=== PATIENT | male | born 1935 | race Caucasian/White ===

== ENCOUNTER 2018-01-12 20:14 | Inpatient (IN) | payer OTHER ==
--- NOTE | 2018-01-12 20:52 | EDPHY ---
H & P Time Seen by Provider: 01/12/18 20:35 HPI/ROS: CHIEF COMPLAINT: Abdominal pain HISTORY OF PRESENT ILLNESS: Patient is a history of pancreatitis possibly due to gallstones but felt relative well today and a hike and elder outer [place]. Around 6:00 p.m. He was with his girlfriend trying to have dinner and just had some sweet potatoes and developed abdominal pain and bloating. He comes in with generalized abdominal pain associated with bloating, no nausea or vomiting or diarrhea. Worse with trying to eat. Not sure feels like his previous pancreatitis. Symptoms moderate at this time. REVIEW OF SYSTEMS: Eye: no change in vision ENT: no sore throat Cardiac: no chest pain or syncope Pulmonary: no cough or SOB Abdomen: HPI Musculoskeletal: no back pain Skin: no rash Neuro: no headache Constitutional: no fever : no urinary symptoms A comprehensive 10 point review of systems is otherwise negative aside from elements mentioned in the history of present illness. PAST MEDICAL HISTORY: Pancreatitis, cholecystectomy, kidney tumor, bladder cancer, hypertension, pulmonary embolism Social history: Here with his girlfriend, no alcohol. General Appearance: Alert and conversant, cooperative. Eyes: No scleral icterus. ENT, Mouth: Normal mucous membranes. Respiratory: Normal respiratory effort, breath sounds equal, lungs are clear to auscultation. Cardiovascular: Regular rate and rhythm. Gastrointestinal: Patient has abdominal distention and mild diffuse tenderness , bowel sounds are present, no peritoneal signs. Neurological: Alert, face symmetric, normal motor and sensory in extremities. Skin: Warm and dry, no rashes. Musculoskeletal: No peripheral edema. Psychiatric: Not agitated. Emergency Department course/MDM: Suspicion moderately high for bowel obstruction given relatively rapid onset of abdominal pain and bloating. Plan for LFT lipase and i-STAT with CT abdomen and pelvis to evaluate for SBO. 2111: Creatinine 1.3, CT ordered without IV contrast. 2140: Acute pancreatitis on CT per Dr. Rodriguez. Plan for admission with IV fluids and NPO. Results discussed with patient and his girlfriend, plan to admit. Declined pain medication. Smoking Status: Never smoked Constitutional: Initial Vital Signs Temperature (C) 36.3 C 01/12/18 20:29 Heart Rate 79 01/12/18 20:29 Respiratory Rate 16 01/12/18 20:29 Blood Pressure 183/110 H 01/12/18 20:29 O2 Sat (%) 95 01/12/18 20:29 O2 Delivery Mode Room Air Allergies/Adverse Reactions: HORSES Allergy (Mild, Uncoded 07/13/13 14:00) IRRITATED EYES Home Medications: Medication Instructions Recorded Cholecalciferol Vit D3 [Vitamin D] 1,000 units PO DAILY 09/17/15 Hydrochlorothiazide [Microzide] 12.5 mg PO DAILY 09/17/15 Omeprazole [Prilosec] 40 mg PO DAILY 09/17/15 Rosuvastatin Calcium [Crestor 10mg 10 mg PO DAILY@1800 09/17/15 (RX)] Warfarin Sodium [Coumadin] 1.25 mg PO TH 09/17/15 Warfarin Sodium [Coumadin 2.5MG 2.5 mg PO SUMOTUWEFRSA@16 01/12/18 (*)] Medical Decision Making - Diagnostics Imaging Results: Imaging Impressions Abdomen/Pelvis CT 01/12/18 21:12 Impression: Acute uncomplicated pancreatitis. Results called and discussed with SHALA BARNES, at 01/12/2018 21:40 General information for patients regarding this examination can be found at [email or web address]. If you have questions or comments about this report, please contact me at (hospital) or [phone] (cell). Imaging: Discussed imaging studies w/ call manager Radiologist, I viewed and interpreted images myself Differential Diagnosis: Differential considered including but not limited to bowel obstruction, pancreatitis, hepatitis, gastroenteritis, intestinal perforation Consult/Admit Bed Type: [place] [id number] - Data Points Laboratory Results: Laboratory Results 01/12/18 20:50 01/12/18 20:50 01/12/18 01/12/18 01/12/18 21:01 20:50 20:50 WBC RBC Hgb POC Hgb 13.9 gm/dL gm/dL (13.7-17.5) Hct POC Hct 41 % % (40-51) MCV MCH MCHC RDW Plt Count MPV Neut % (Auto) Lymph % (Auto) Teller % (Auto) Eos % (Auto) Baso % (Auto) Nucleat RBC Rel Count Absolute Neuts (auto) Absolute Lymphs (auto) Absolute Monos (auto) Absolute Eos (auto) Absolute Basos (auto) Absolute Nucleated RBC Immature Gran % Immature Gran # PT 24.0 SEC H SEC (12.0-15.0) INR 2.15 H (0.83-1.16) POC Sodium 140 mEq/L mEq/L (135-145) Sodium 137 mEq/L mEq/L (135-145) POC Potassium 3.6 mEq/L mEq/L (3.3-5.0) Potassium 3.7 mEq/L mEq/L (3.5-5.2) POC Chloride 101 mEq/L mEq/L (97-110) Chloride 99 mEq/L mEq/L (97-110) Carbon Dioxide 24 mEq/l mEq/l (22-31) Anion Gap 14 mEq/L mEq/L (8-16) POC BUN 34 mg/dL H mg/dL (7-23) BUN 34 mg/dL H mg/dL (7-23) Creatinine 1.3 mg/dL mg/dL (0.7-1.3) POC Creatinine 1.3 mg/dL mg/dL (0.7-1.3) Estimated GFR 53 Glucose 104 mg/dL H mg/dL (70-100) POC Glucose 102 mg/dL H mg/dL (70-100) Calcium 9.6 mg/dL mg/dL (8.5-10.4) Total Bilirubin 0.3 mg/dL mg/dL (0.1-1.4) Conjugated Bilirubin 0.2 mg/dL mg/dL (0.0-0.5) Unconjugated Bilirubin 0.1 mg/dL mg/dL (0.0-1.1) AST 29 IU/L IU/L (17-59) ALT 41 IU/L IU/L (21-72) Alkaline Phosphatase 66 IU/L IU/L (38-126) Total Protein 7.4 g/dL g/dL (6.3-8.2) Albumin 4.3 g/dL g/dL (3.5-5.0) Lipase > 36637 IU/L H IU/L (23-300) Urine Color Urine Appearance Urine pH Ur Specific [place] Urine Protein Urine Ketones Urine Blood Urine Nitrate Urine Bilirubin Urine Urobilinogen Ur Leukocyte Esterase Urine RBC Urine WBC Ur Epithelial Cells Urine Glucose 01/12/18 01/12/18 20:50 20:40 WBC 8.09 10^3/uL 10^3/uL (3.80-9.50) RBC 5.28 10^6/uL 10^6/uL (4.40-6.38) Hgb 14.0 g/dL g/dL (13.7-17.5) POC Hgb Hct 43.7 % % (40.0-51.0) POC Hct MCV 82.8 fL fL (81.5-99.8) MCH 26.5 pg L pg (27.9-34.1) MCHC 32.0 g/dL L g/dL (32.4-36.7) RDW 15.0 % % (11.5-15.2) Plt Count 257 10^3/uL 10^3/uL (150-400) MPV 9.3 fL fL (8.7-11.7) Neut % (Auto) 76.2 % H % (39.3-74.2) Lymph % (Auto) 11.4 % L % (15.0-45.0) Teller % (Auto) 7.3 % % (4.5-13.0) Eos % (Auto) 4.0 % % (0.6-7.6) Baso % (Auto) 0.9 % % (0.3-1.7) Nucleat RBC Rel Count 0.0 % % (0.0-0.2) Absolute Neuts (auto) 6.17 10^3/uL 10^3/uL (1.70-6.50) Absolute Lymphs (auto) 0.92 10^3/uL L 10^3/uL (1.00-3.00) Absolute Monos (auto) 0.59 10^3/uL 10^3/uL (0.30-0.80) Absolute Eos (auto) 0.32 10^3/uL 10^3/uL (0.03-0.40) Absolute Basos (auto) 0.07 10^3/uL 10^3/uL (0.02-0.10) Absolute Nucleated RBC 0.00 10^3/uL 10^3/uL (0-0.01) Immature Gran % 0.2 % % (0.0-1.1) Immature Gran # 0.02 10^3/uL 10^3/uL (0.00-0.10) PT INR POC Sodium Sodium POC Potassium Potassium POC Chloride Chloride Carbon Dioxide Anion Gap POC BUN BUN Creatinine POC Creatinine Estimated GFR Glucose POC Glucose Calcium Total Bilirubin Conjugated Bilirubin Unconjugated Bilirubin AST ALT Alkaline Phosphatase Total Protein Albumin Lipase Urine Color PALE YELLOW Urine Appearance CLEAR Urine pH 5.0 (5.0-7.5) Ur Specific [place] 1.008 (1.002-1.030) Urine Protein 1+ H (NEGATIVE) Urine Ketones NEGATIVE (NEGATIVE) Urine Blood NEGATIVE (NEGATIVE) Urine Nitrate NEGATIVE (NEGATIVE) Urine Bilirubin NEGATIVE (NEGATIVE) Urine Urobilinogen NEGATIVE EU EU (0.2-1.0) Ur Leukocyte Esterase NEGATIVE (NEGATIVE) Urine RBC 1-3 /hpf /hpf (0-3) Urine WBC 1-3 /hpf /hpf (0-3) Ur Epithelial Cells NONE SEEN /lpf /lpf (NONE-1+) Urine Glucose NEGATIVE (NEGATIVE) Medications Given: Discontinued Medications Sodium Chloride (Ns) 1,000 mls @ 0 mls/hr IV EDNOW ONE; Wide Open PRN Reason: Protocol Stop: 01/12/18 21:47 Last Admin: 01/12/18 21:48 Dose: 1,000 mls Sodium Chloride (Ns) 1,000 mls @ 0 mls/hr IV EDNOW ONE; Wide Open PRN Reason: Protocol Stop: 01/12/18 22:06 Last Admin: 01/12/18 22:20 Dose: 1,000 mls Point of Care Test Results: 01/12/18 21:01 POC Sodium 140 POC Potassium 3.6 POC Chloride 101 POC BUN 34 H POC Creatinine 1.3 POC Glucose 102 H Departure - Departure Disposition: [facility] Inpatient Acute Clinical Impression: Acute pancreatitis Qualifiers: Pancreatitis type: unspecified pancreatitis type Acute pancreatitis complication: unspecified Qualified Code(s): K85.90 - Acute pancreatitis without necrosis or infection, unspecified Condition: Good
[2018-01-12 21:10] LABS: PLATELET COUNT 257 10^3/uL (150-400)
[2018-01-12 21:15] LABS: INR 2.15 (0.83-1.16)
[2018-01-12] MEDS ORDERED: NS 1,000 ML IV ONE ×2 (21:46→22:05)
[2018-01-12] MEDS ORDERED: ONDANSETRON 4 MG/2 ML VIAL IVP PRN (22:17)
[2018-01-12] MEDS ORDERED: ACETAMINOPHEN 325 MG TAB PO PRN (22:17)
[2018-01-12] MEDS: HYDROmorphONE/DILAUDID 1 MG/ML INJ IVP PRN (23:23)
[2018-01-12] MEDS: NS 1,000 ML IV SCH (23:26)
--- NOTE | 2018-01-12 23:44 | PDGENHP ---
History and Physical - Chief Complaint abdominal pain - History of Present Illness Source-patient provides history appears reliable. Case discussed with ED provider in EMR was reviewed. HPI - this is a very pleasant 82-year-old gentleman with past medical history significant for recurrent pancreatitis on GERD hyperlipidemia history of benign kidney tumor status post resection history of bladder cancer in remission, hypertension, PE on Coumadin since 2007 who presents emergency department today on with complaints of 1 day history of abdominal pain and distension. Patient is quite active any when on the 6 mi hike home with some friends earlier in the day time. They returned back for lunch approximately of 4:35 p.m. Patient began to develop increasing upper abdominal pain with distention. He did had poor appetite on and chills but no fevers. Patient subsequently tried to eat dinner he found that he had very little appetite and took just a few bites and subsequently developed increasing abdominal pain and distension. Given his past experience with would be almaraz to present to the emergency department for further evaluation. Patient states that he has had a bowel movement this morning he denies any melena hematochezia or diarrhea. Patient has had just some nausea status post narcotic in the emergency department for pain which has since resolved. Patient with a history of 2 previous episodes of pancreatitis. The 1st episode was felt to be due to gallstones and so he subsequently underwent cholecystectomy after pancreatitis has improved. He again had another episode while in [place] and there was concerns that perhaps his home statin Lipitor was contributing to his symptoms and so this was discontinued and subsequently substituted with Crestor. History Information - Allergies/Home Medication List Allergies/Adverse Reactions: HORSES Allergy (Mild, Uncoded 07/13/13 14:00) IRRITATED EYES Home Medications: Cholecalciferol Vit D3 [Vitamin D] 1,000 units PO DAILY 09/17/15 [Last Taken ] Hydrochlorothiazide [Microzide] 12.5 mg PO DAILY 09/17/15 [Last Taken 01/12/18] Omeprazole [Prilosec] 40 mg PO DAILY 09/17/15 [Last Taken 01/12/18] Rosuvastatin Calcium [Crestor 10mg (RX)] 10 mg PO DAILY@1800 09/17/15 [Last Taken 01/12/18] Warfarin Sodium [Coumadin] 1.25 mg PO TH 09/17/15 [Last Taken 01/12/18] Warfarin Sodium [Coumadin 2.5MG (*)] 2.5 mg PO PRICILLATUWEFMARYANA@16 01/12/18 [Last Taken 01/11/18] I have personally reviewed and updated: family history, medical history, social history, surgical history - Past Medical History Additional medical history: GERD, HLD, HTN, PE on Coumadin since 2007, recurrent pancreatitis status post cholecystectomy, history of benign kidney tumor, history of bladder cancer in remission. - Surgical History Additional surgical history: Bilateral cataract extraction with lens placement, tonsillectomy adenoidectomy, hernia repair, cholecystectomy, cystectomy with BCG treatment, TURP - Family History Additional family history: Father with CAD in his 40s - Social History Smoking Status: Never smoked Alcohol Use: Occasionally Drug Use: None Additional social history: Patient is quite active he goes outdoors frequently. He has good support from a girlfriend and his sons. Cor status full. Patient 's son's Jose Francisco and Sha Dariel are MD POA if needed Review of Systems Review of Systems: ROS: 10pt was reviewed & negative except for what was stated in HPI & below Constitutional: Reports: chills (X1 resolved) EENMT: Reports: other (Wears reader is). Denies: blurred vision Cardiac: Denies: chest pain, edema, palpitations Respiratory: Denies: cough, shortness of breath Gastrointestinal: Reports: abdominal pain (Epigastric), abdominal distention, nausea (X1 after narcotics). Denies: vomitting, diarrhea Physical Exam Physical Exam: Selected Entries 01/12/18 20:29 Blood Pressure Automatic Method Heart Rate 79 Respiratory 16 Rate O2 Sat (%) 95 Temperature (C) 36.3 C Blood Pressure 183/110 H Mean Arterial 134 H Pressure (MAP) O2 Delivery Room Air Mode Temperature Oral Source Temp Pulse Resp BP Pulse Ox 36.3 C 75 20 142/89 H 95 01/12/18 20:29 01/12/18 22:30 01/12/18 22:30 01/12/18 22:30 01/12/18 22:30 Constitutional: no apparent distress, appears nourished, other (NAD. Pleasant elderly gentleman appears slightly younger than stated age. Lays quietly in bed ), No obese Eyes: PERRL, anicteric sclera Ears, Nose, Mouth, Throat: no oral mucosal ulcers, dry mucous membranes, No poor dentition Cardiovascular: regular rate and rhythym, no murmur, rub, or gallop, pulses symmetric bilaterally, No systolic murmur Peripheral Pulses: 1+: dorsalis-pedis (R), dorsalis-pedis (L) Respiratory: no respiratory distress, no rales or rhonchi, clear to auscultation , No reduced air movement Gastrointestinal: tenderness (Abdomen is soft. Patient with tenderness in the epigastric region and withdraws from exam.), distension, No normoactive bowel sounds (Hypoactive bowel sounds), No soft, non-tender abdomen, No lugo's sign , No guarding, No rebound Genitourinary: no bladder tenderness, No urrutia in urethra Skin: warm, normal color, no rashes or abrasions, No mottled Musculoskeletal: full muscle strength, no muscle tenderness, No joint tenderness Neurologic: AAOx3, sensation intact bilaterally, CN II-XII Intact, No facial droop Psychiatric: not anxious, not encephalopathic, thought process linear Lymph, Heme, Immunologic: No ecchymoses, No petechiae Lab Data & Imaging Review 01/13/18 03:20 01/13/18 03:20 WBC 8.09 10^3/uL (3.80-9.50) 01/12/18 20:50 RBC 5.28 10^6/uL (4.40-6.38) 01/12/18 20:50 Hgb 14.0 g/dL (13.7-17.5) 01/12/18 20:50 POC Hgb 13.9 gm/dL (13.7-17.5) 01/12/18 21:01 Hct 43.7 % (40.0-51.0) 01/12/18 20:50 POC Hct 41 % (40-51) 01/12/18 21:01 MCV 82.8 fL (81.5-99.8) 01/12/18 20:50 MCH 26.5 pg (27.9-34.1) L 01/12/18 20:50 MCHC 32.0 g/dL (32.4-36.7) L 01/12/18 20:50 RDW 15.0 % (11.5-15.2) 01/12/18 20:50 Plt Count 257 10^3/uL (150-400) 01/12/18 20:50 MPV 9.3 fL (8.7-11.7) 01/12/18 20:50 Neut % (Auto) 76.2 % (39.3-74.2) H 01/12/18 20:50 Lymph % (Auto) 11.4 % (15.0-45.0) L 01/12/18 20:50 [place] % (Auto) 7.3 % (4.5-13.0) 01/12/18 20:50 Eos % (Auto) 4.0 % (0.6-7.6) 01/12/18 20:50 Baso % (Auto) 0.9 % (0.3-1.7) 01/12/18 20:50 Nucleat RBC Rel Count 0.0 % (0.0-0.2) 01/12/18 20:50 Absolute Neuts (auto) 6.17 10^3/uL (1.70-6.50) 01/12/18 20:50 Absolute Lymphs (auto) 0.92 10^3/uL (1.00-3.00) L 01/12/18 20:50 Absolute Monos (auto) 0.59 10^3/uL (0.30-0.80) 01/12/18 20:50 Absolute Eos (auto) 0.32 10^3/uL (0.03-0.40) 01/12/18 20:50 Absolute Basos (auto) 0.07 10^3/uL (0.02-0.10) 01/12/18 20:50 Absolute Nucleated RBC 0.00 10^3/uL (0-0.01) 01/12/18 20:50 Immature Gran % 0.2 % (0.0-1.1) 01/12/18 20:50 Immature Gran # 0.02 10^3/uL (0.00-0.10) 01/12/18 20:50 PT 24.0 SEC (12.0-15.0) H 01/12/18 20:50 INR 2.15 (0.83-1.16) H 01/12/18 20:50 POC Sodium 140 mEq/L (135-145) 01/12/18 21:01 Sodium 137 mEq/L (135-145) 01/12/18 20:50 POC Potassium 3.6 mEq/L (3.3-5.0) 01/12/18 21:01 Potassium 3.7 mEq/L (3.5-5.2) 01/12/18 20:50 POC Chloride 101 mEq/L (97-110) 01/12/18 21:01 Chloride 99 mEq/L (97-110) 01/12/18 20:50 Carbon Dioxide 24 mEq/l (22-31) 01/12/18 20:50 Anion Gap 14 mEq/L (8-16) 01/12/18 20:50 POC BUN 34 mg/dL (7-23) H 01/12/18 21:01 BUN 34 mg/dL (7-23) H 01/12/18 20:50 Creatinine 1.3 mg/dL (0.7-1.3) 01/12/18 20:50 POC Creatinine 1.3 mg/dL (0.7-1.3) 01/12/18 21:01 Estimated GFR 53 01/12/18 20:50 Glucose 104 mg/dL (70-100) H 01/12/18 20:50 POC Glucose 102 mg/dL (70-100) H 01/12/18 21:01 Calcium 9.6 mg/dL (8.5-10.4) 01/12/18 20:50 Total Bilirubin 0.3 mg/dL (0.1-1.4) 01/12/18 20:50 Conjugated Bilirubin 0.2 mg/dL (0.0-0.5) 01/12/18 20:50 Unconjugated Bilirubin 0.1 mg/dL (0.0-1.1) 01/12/18 20:50 AST 29 IU/L (17-59) 01/12/18 20:50 ALT 41 IU/L (21-72) 01/12/18 20:50 Alkaline Phosphatase 66 IU/L (38-126) 01/12/18 20:50 Total Protein 7.4 g/dL (6.3-8.2) 01/12/18 20:50 Albumin 4.3 g/dL (3.5-5.0) 01/12/18 20:50 Lipase > 90014 IU/L (23-300) H 01/12/18 20:50 Urine Color PALE YELLOW 01/12/18 20:40 Urine Appearance CLEAR 01/12/18 20:40 Urine pH 5.0 (5.0-7.5) 01/12/18 20:40 Ur Specific [place] 1.008 (1.002-1.030) 01/12/18 20:40 Urine Protein 1+ (NEGATIVE) H 01/12/18 20:40 Urine Ketones NEGATIVE (NEGATIVE) 01/12/18 20:40 Urine Blood NEGATIVE (NEGATIVE) 01/12/18 20:40 Urine Nitrate NEGATIVE (NEGATIVE) 01/12/18 20:40 Urine Bilirubin NEGATIVE (NEGATIVE) 01/12/18 20:40 Urine Urobilinogen NEGATIVE EU (0.2-1.0) 01/12/18 20:40 Ur Leukocyte Esterase NEGATIVE (NEGATIVE) 01/12/18 20:40 Urine RBC 1-3 /hpf (0-3) 01/12/18 20:40 Urine WBC 1-3 /hpf (0-3) 01/12/18 20:40 Ur Epithelial Cells NONE SEEN /lpf (NONE-1+) 01/12/18 20:40 Urine Glucose NEGATIVE (NEGATIVE) 01/12/18 20:40 Imaging Review: CT Abdomen and Pelvis Without Contrast ([facility] Protocol) History: Abdominal distention, possible small bowel obstruction, high creatinine, abdominal pain. Prior history of cholecystectomy, pancreatitis and urinary bladder cancer. Technique: Ultrathin ultrafast [address] through the abdomen and pelvis without contrast. Dose reduction techniques were utilized. Comparison: November 01, 2016 Findings: There is new inflammation and enlargement of the pancreatic head and neck consistent with acute pancreatitis. There is no pseudocyst formation. There are chronic calcifications in the pancreatic head. There is adjacent inflammation of the duodenal sweep. The stomach is not distended. There is no small bowel obstruction, ascites or free air. Right upper quadrant surgical clips are consistent with prior cholecystectomy. There is no biliary obstruction or distal pancreatic ductal dilatation. There is chronic prostatomegaly with a TURP defect. The prostate measures 6.6 x 6.2 cm.There is sigmoid diverticulosis without evidence of diverticulitis or colon obstruction. 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 There is mild dilatation of the infrarenal abdominal aorta which measures up to 2.8 cm in diameter, unchanged since 2016. Impression: Acute uncomplicated pancreatitis. Results called and discussed with SHALA BARNES, at 01/12/2018 21:40 Visualized and Interpreted imaging results: Yes Assessment & Plan Assessment: Acute pancreatitis (Acute) - etiology is unknown at this time. Patient is status post a cholecystectomy. Will hold his home medications orally including his statin for now. Will check a triglyceride. Patient without any evidence of CBD dilation. Continue with bowel rest, IV fluid hydration, pain management and await improvement in patient's symptoms. Discussed with the patient plan for bowel rest followed by slow reintroduction to oral intake. Repeat lipase amylase morning. Epigastric abdominal pain - Dilaudid available p.r.n. for pain incidental findings on CT - renal cysts - sigmoid diverticulosis without diverticulitis - BPH - small sliding hiatal hernia Chronic medical problems - benign essential HTN with elevated blood pressures likely related to pain. Hydralazine will be made available p.r.n. While patient is NPO. - GERD - IV Protonix per formulary till diet is advanced. - HLD - holding statin while NPO. - PE on chronic anticoagulation with Coumadin - patient's INR is therapeutic at this time. He will be NPO for a day or 2 but will monitor PT INR. As it is quite remote if patient recovers quickly and oral intake is resumed patient may not require any form of bridging. FEN - IV fluids. Electrolyte monitoring and replacement if needed. Patient remain NPO until abdominal symptoms improved. PPX-SCDs. Patient currently INR is therapeutic will continue to monitor. May require Lovenox bridging high given patient PE was sometime ago if he recovers quickly enough an oral intake is resumed he may not required. COR - full code. Patient's son's Jose Francisco and Sha Vieira are POClau Dispo - patient will be admitted to inpatient status for his acute pancreatitis on the medical floor as a PCU overflow. Patient's lipase is significantly elevated will plan to monitor and advance diet very slowly.
[2018-01-13] MEDS ORDERED: hydrALAZINE 20 MG/ML VIAL IVP PRN (00:46)
[2018-01-13] MEDS: HYDROmorphONE/DILAUDID 1 MG/ML INJ IVP PRN (03:48)
[2018-01-13 04:16] LABS: PLATELET COUNT 200 10^3/uL (150-400)
[2018-01-13 04:20] LABS: INR 2.41 (0.83-1.16); PROTIME(PATIENT) 26.2 SEC (12.0-15.0)
[2018-01-13] MEDS ORDERED: PANTOPRAZOLE SODIUM 40 MG VIAL IVP SCH (09:00)
--- NOTE | 2018-01-13 09:03 | ASMTCMCOM ---
CM Note CM Note Notes: Patient admitted with abdominal pain/distention; CT of abdomen shows acute pancreatitis. He will be treated supportively with IV fluids, pain meds, and bowel rest. Oral meds to be held and diet to be advanced very slowly. Patient is normally very active and independent in all ADLs, therefore no therapies have been ordered. His sons Sha and Jose Francisco (one local) are his MDPOA. He has a supportive girlfriend as well. I don't anticipate any discharge needs, but CM available if any arise. Current CM Discharge plan: home independent Date Signed: 01/13/2018 09:02 AM Electronically Signed By:Missy Higgins RN
[2018-01-13] MEDS: NS 1,000 ML IV SCH ×2 (09:45→17:57)
--- NOTE | 2018-01-13 11:48 | PDMN ---
Medical Necessity Medical necessity: Patient meets inpatient criteria per physician note and [facility] M -250 Pancreatitis (presents w/upper abd pain and chills; acute pancreatitis per CT; lipase > ; lipase 2060; history of recurrent pancreatitis; anticipated LOS > 2 midnights for ongoing IV hydration, IV pain relief, bowel rest.)
--- NOTE | 2018-01-13 12:20 | HOSPPROG ---
Hospitalist Progress Note Assessment/Plan: 82-year-old male with admitted with acute abdominal pain and found to have acute pancreatitis. This is the 3rd episode of pancreatitis of unclear etiology. Patient is new to me today -acute pancreatitis with an admission lipase of over 20,000 now declined to 11, 000. Clinically the patient is improving and will begin clear liquids. Possible etiology he is drug induced secondary to Crestor or possibly HCTZ. Plan: Stop Crestor and continue the HCTZ. -hyperlipidemia on low dose of Crestor. Will stop Crestor -history of a pulmonary embolus on anticoagulation of Coumadin. INR was therapeutic at admission and will continue his current dose of Coumadin. Plan: Findings were discussed with his PCP Dr. Celio Houston. Patient discussed on rounds. Time: 40 min Subjective: Reports he is feeling improved and would like to take some clear liquids. No nausea or vomiting he has very mild abdominal pain. Objective: Vital Signs Temp Pulse Resp BP Pulse Ox 36.6 C 86 18 131/84 H 90 L 01/13/18 12:00 01/13/18 12:00 01/13/18 12:00 01/13/18 12:00 01/13/18 12:00 Laboratory Results 01/13/18 03:20 01/13/18 03:20 01/12/18 01/13/18 01/14/18 05:59 05:59 05:59 Output Total 1 Balance -1 PT 26.2 SEC (12.0-15.0) H 01/13/18 03:20 INR 2.41 (0.83-1.16) H 01/13/18 03:20 - Time Spent With Patient Time Spent with Patient: greater than 35 minutes Time Spent with Patient: Greater than 35 minutes spent on this patients care, greater than 50% of time spent counseling, educating, and coordinating care regarding the above mentioned plan. - Pending Discharge Pending Discharge Within 24 Hours: No Pending Discharge Within 48 Hours: No - Physical Exam Constitutional: no apparent distress Eyes: PERRL Ears, Nose, Mouth, Throat: moist mucous membranes, hearing normal Cardiovascular: regular rate and rhythym, no murmur, rub, or gallop Respiratory: no respiratory distress, no rales or rhonchi Gastrointestinal: normoactive bowel sounds, tenderness (Tenderness on palpation in the deep epigastric region without a pulsatile mass or rebound.) Genitourinary: no bladder fullness Skin: warm Musculoskeletal: full muscle strength Neurologic: AAOx3, CN II-XII Intact Psychiatric: interacting appropriately ICD10 Worksheet Patient Problems: Problems Problem Status Onset Acute pancreatitis Acute
[2018-01-13] MEDS: WARFARIN SODIUM 2.5 MG TAB PO SCH (18:15)
[2018-01-13] MEDS: PANTOPRAZOLE SODIUM 40 MG TAB PO SCH (18:15)
[2018-01-14] MEDS: LORazepam 0.5 MG TAB PO PRN ×2 (00:10→22:28)
[2018-01-14 04:44] LABS: PLATELET COUNT 186 10^3/uL (150-400)
[2018-01-14] MEDS: PANTOPRAZOLE SODIUM 40 MG TAB PO SCH (09:31)
[2018-01-14] MEDS: CHOLECALCIFEROL VIT D3 1,000 UNITS TAB PO SCH (09:31)
--- NOTE | 2018-01-14 18:06 | HOSPPROG ---
Hospitalist Progress Note Assessment/Plan: DIAGNOSES: -recurrent pancreatitis, episode #3 for this patient -history of cholecystectomy after the 1st episode of pancreatitis -current intake of alcohol approximately 3 drinks per week never more than 1 per day -triglycerides are in normal range at 170 -patient does take maxzide and Crestor, both of which may rarely be a cause of pancreatitis but seems fairly unlikely as a cause statistically in this patient I am concerned about the possibility of either a ductal stone or ductal stricture or other anatomic cause of pancreatitis in this patient and he has not really been assessed for that at this point. Imaging is indicated Otherwise there is no definitive cause for this. I did intake counselor that the patient should really look to stopping alcohol altogether as even small amounts of alcohol if nothing else can make him more susceptible to pancreatitis from other causes. I did review with him in detail the potential complications of both acute and chronic recurrent pancreatitis. He understands that this is something he definitely wants to avoid. PLANS: -trial of low-fat diet to see how he tolerates that at this point -MRCP to assess for either stone or stricture -strong recommendation that he give up alcohol entirely -regarding discontinuation of diuretic and Crestor, would have him visit with his primary care doctor or a resource specialist teacher to review his lifetime risk of vascular events such as stroke and heart attack. If he is at very high risk it may be reasonable to consider continuing use of Crestor. SUBJECTIVE: Feels quite notably better today. Still some mild abdominal pain narrow line no fevers No nausea or vomiting Tolerating clear liquids well OBJECTIVE Vitals reviewed: Stable without fever Sugar Drier, my review: Exam: alert oriented skin warm dry color ok resps not labored lungs clear BSs heart regular abd soft nondistended with very mild tenderness at upper left abdomen no rebound or mass, bowel sounds present limbs warm, no edema iv site ok Laboratory data: Lipase down to 3000 Triglycerides normal Other labs stable at this time no change in mild anemia Objective: Vital Signs Temp Pulse Resp BP Pulse Ox 36.7 C 91 19 164/93 H 93 01/14/18 12:49 01/14/18 12:49 01/14/18 12:49 01/14/18 12:49 01/14/18 12:49 Laboratory Results 01/14/18 04:11 01/14/18 04:11 01/13/18 01/14/18 01/15/18 06:59 06:59 06:59 Intake Total 2790 337 Output Total 1 980 Balance -1 1810 337 PT 26.2 SEC (12.0-15.0) H 01/13/18 03:20 INR 2.41 (0.83-1.16) H 01/13/18 03:20 - Time Spent With Patient Time Spent with Patient: greater than 35 minutes Time Spent with Patient: Greater than 35 minutes spent on this patients care, greater than 50% of time spent counseling, educating, and coordinating care regarding the above mentioned plan. ICD10 Worksheet Patient Problems: Problems Problem Status Onset Acute pancreatitis Acute
[2018-01-14] MEDS: WARFARIN SODIUM 2.5 MG TAB PO SCH (18:23)
[2018-01-15 05:01] LABS: INR 3.37 (0.83-1.16); PROTIME(PATIENT) 33.9 SEC (12.0-15.0)
[2018-01-15] MEDS: CHOLECALCIFEROL VIT D3 1,000 UNITS TAB PO SCH (09:47)
[2018-01-15] MEDS: PANTOPRAZOLE SODIUM 40 MG TAB PO SCH (09:47)
[2018-01-15 14:08] VITALS: PULSE 77; RESP 16; TEMP 97.7; O2SAT 94
--- NOTE | 2018-01-15 14:39 | PDDCSUM ---
Discharge Summary Discharge Summary: DISCHARGE DIAGNOSES: -acute pancreatitis, uncomplicated, 3rd ever episode -recent use of low level alcohol at approximately 3-4 drinks per week -history of cholecystectomy -MRCP at this time showing no biliary or pancreatic ductal obstructions or lesions, no stones -chronic hypercholesterolemia -chronic hypertension -normal triglyceride level of 170 PROCEDURES: MRCP CT Abd HOSPITAL COURSE SUMMARY: This patient has 2 prior episodes of pancreatitis that were uncomplicated, comes in right now with abdominal pain and vomiting and again is found have acute pancreatitis which was uncomplicated and resolved easily with conservative measures in a short period of time here. He had a cholecystectomy after his 1st episode. He continues to use alcohol at 3-4 drinks per week usually not more than 1 per day. He has normal triglycerides here. There is no family history of pancreatitis. He does take Crestor and hydrochlorothiazide and that was recommended at this point that he stop those medicines for the moment and follow up with his primary care physician regarding whether he should continue those or consider other options for managing lipids in blood pressure. We did do an MRCP here that shows no evidence of any ductal abnormalities or stones. At this point the overall prognosis is good for full recovery from this episode. However the patient is clearly at risk for more episodes of pancreatitis. It is recommended that he stop all alcohol intake indefinitely. In terms of hydrochlorothiazide this is not likely to be a cause of his pancreatitis but we have many other medicines used for blood pressure and he should consider exploring other options with his primary care physician. In terms of hyperlipidemia I recommended that he explore his vascular events risk with his primary care physician and make sure that he has significant risk that we are treating with statin medicines before we have him resume that kind of medicine, as opposed to simply treating a high cholesterol blood test number. Again the risk of the statin being cause of his pancreatitis is small however we want to minimize his pancreatic risk and any medicines that he takes that could potentially cause pancreatitis should have some obvious and clearly defined benefit. I recommended the patient that he be on a low-fat diet for the next 2 weeks and then be on a heart healthy diet beyond that as he has had high cholesterol. He has not at this time no primary care physician but has an appointment to meet Dr. Fior Valdez for primary care. PENDING TEST RESULTS: None MEDICATION CHANGES: Patient will hold his hydrochlorothiazide and Crestor until flying up with Dr. Valdez Discontinue all alcohol intake FOLLOW-UP PLAN: Follow-up appoint with Dr. Fior Valdez in 2 weeks Greater than 35 minutes bedside and care coordination time today
[2018-01-15 14:56] VITALS: BP 148/89
--- NOTE | 2018-01-15 15:31 | ASDISCHSUM ---
Discharge Information Plan Status: Medically Cleared to Leave: Discharge Date:01/15/2018 03:20 PM CM D/C Disposition: ADT D/C Disposition:Home, Routine, Self-Care Projected Discharge Date:01/15/2018 03:20 PM Transportation at D/C: Discharge Delay Reason: Follow-Up Date:01/15/2018 03:20 PM Discharge Slot: Final Diagnosis: Placement Information Patient Contact Information Contact Name:SHARENÉE Relationship:Shay Address:[address] City:[place] Alternate Phone: State/Zip Code:[place] [address] Email: Financial Information Financial Class:Medicare Advantage Plans Primary Plan Desc:[facility] Primary Plan Number:[id number] Secondary Plan Desc: Secondary Plan Number: Assessment Information [facility] CM Progress Note CM Note CM Note Notes: Patient admitted with abdominal pain/distention; CT of abdomen shows acute pancreatitis. He will be treated supportively with IV fluids, pain meds, and bowel rest. Oral meds to be held and diet to be advanced very slowly. Patient is normally very active and independent in all ADLs, therefore no therapies have been ordered. His sons Sha and Jose Francisco (one local) are his MDPOA. He has a supportive girlfriend as well. I don't anticipate any discharge needs, but CM available if any arise. Current CM Discharge plan: home independent Date Signed: 01/13/2018 09:02 AM Electronically Signed By:Missy Higgins RN Intervention Information
[2018-01-19] MEDS ORDERED: WARFARIN SODIUM 2.5 MG TAB PO SCH (16:00)
== END 2018-01-15 15:20 | disposition home or self-care (01) | DRG 440 ==
LOC: F2W 22:54 → F1N 01-13 18:26
PROVIDERS: ADMIT Family Medicine; ATTEND Family Medicine
DX: K85.90 Acute pancreatitis without necrosis or infection, unspecified (principal); E78.00 Pure hypercholesterolemia, unspecified; I10 Essential (primary) hypertension; E78.5 Hyperlipidemia, unspecified; K21.9 Gastro-esophageal reflux disease without esophagitis; Z86.711 Personal history of pulmonary embolism; Z79.01 Long term (current) use of anticoagulants; Z85.51 Personal history of malignant neoplasm of bladder
CPT/HCPCS: 82947-QW; J1170

== ENCOUNTER 2018-01-29 13:22 | Emergency (ER) | payer OTHER ==
[2018-01-29 13:31] VITALS: PULSE 78; O2SAT 95
--- NOTE | 2018-01-29 14:05 | EDPHY ---
H & P Time Seen by Provider: 01/29/18 13:39 HPI/ROS: CHIEF COMPLAINT: Low back pain HISTORY OF PRESENT ILLNESS: Patient is on warfarin for pulmonary embolism, has a remote history of bladder cancer. He is very active and road his bicycle down the bike path yesterday to the [place] [employer]. He has had pain in his right lower back now for 2 days starting Tuesday of this week. He says it is located below his pelvic brim but above his buttock and does not radiate. It is better with movement especially getting up and out of a chair and bending over at the waist. Symptoms mild to moderate and not associated with urinary symptoms or recent injury or trauma or weakness or numbness in the legs. REVIEW OF SYSTEMS: Eye: no change in vision ENT: no sore throat Cardiac: no chest pain or syncope Pulmonary: no cough or SOB Abdomen: no vomiting, diarrhea, abdominal pain Musculoskeletal: HPI Skin: no rash Neuro: no headache or weakness or numbness in extremities Constitutional: no fever : no urinary symptoms or incontinence A comprehensive 10 point review of systems is otherwise negative aside from elements mentioned in the history of present illness. PAST MEDICAL HISTORY: Includes bladder cancer, pulmonary embolism, cholecystectomy, pancreatitis, hypertension or Social history: Nonsmoker General Appearance: Alert and conversant, cooperative. Eyes: No scleral icterus. ENT, Mouth: Normal mucous membranes. Respiratory: Normal respiratory effort, breath sounds equal, lungs are clear to auscultation. Cardiovascular: Regular rate and rhythm. Gastrointestinal: Abdomen is soft and non tender. No pulsatile mass. Neurological: Alert, face symmetric, normal motor and sensory in extremities. Patellar reflexes 2+ symmetric and toes downgoing bilaterally. Good dorsiflexion and plantar flexion of both feet. Straight leg raising on the right does slightly increases symptoms on the right. Straight leg raising on the left does not. He is ambulatory without assistance or ataxia and can bend over to put his clothes away in the closet as I enter the room. Skin: Warm and dry, no rashes. No bruising over the area of pain. Musculoskeletal: No thoracic or lumbar spine point tenderness and pelvis is stable. I do not appreciate any swelling on his back. He does not have tenderness in his sciatic notch. Psychiatric: Not agitated. Emergency Department course/MDM: X-rays ordered because of the patient's history of cancer and age. Those are all personally interpreted as negative for acute abnormality. I discussed with the patient the differential and the fact that I do not think it is likely he has spinal cord problem or retroperitoneal hematoma or cauda equina syndrome, renal colic or fracture, or other emergent medical or surgical cause for symptoms. More likely he has a muscular issue or possibly mild sciatica. Either will be treated conservatively at this time the patient is in agreement will follow up with his primary care physician Dr. Fior Valdez at [facility] next week if he is not improving. Smoking Status: Never smoked Constitutional: Initial Vital Signs Temperature (C) 36.3 C 01/29/18 13:26 Heart Rate 78 01/29/18 13:26 Respiratory Rate 16 01/29/18 13:26 Blood Pressure 154/86 H 01/29/18 13:26 O2 Sat (%) 95 01/29/18 13:26 O2 Delivery Mode Room Air Allergies/Adverse Reactions: HORSES Allergy (Mild, Uncoded 01/29/18 13:25) IRRITATED EYES Home Medications: Medication Instructions Recorded Cholecalciferol Vit D3 [Vitamin D] 1,000 units PO DAILY 09/17/15 Omeprazole [Prilosec] 40 mg PO DAILY 09/17/15 Warfarin Sodium [Coumadin] 1.25 mg PO TH 09/17/15 Warfarin Sodium [Coumadin 2.5MG 2.5 mg PO SUMOTUWEFRSA@16 01/12/18 (*)] Medical Decision Making - Diagnostics Imaging Results: Imaging Impressions Lumbar Spine X-Ray 01/29/18 13:57 Impression: Lumbar scoliosis, with degenerative features most pronounced at L1- L2 and L5-S1 with mid to lower lumbar facet degenerative arthropathy. AP Upright Pelvis, Single View, at 1:28 PM: Each femoral head is well-seated within its respective acetabulum. There is some very mild hip degenerative change. There is no fracture or dislocation. The ischial pubic rami are intact. There is no symphysis pubis or SI joint diastasis. Impression: Minor degenerative changes. If there is further clinical concern regarding the patient's lumbago and radicular symptoms, MR imaging could be considered. Pelvis X-Ray 01/29/18 13:57 Impression: Lumbar scoliosis, with degenerative features most pronounced at L1- L2 and L5-S1 with mid to lower lumbar facet degenerative arthropathy. AP Upright Pelvis, Single View, at 1:28 PM: Each femoral head is well-seated within its respective acetabulum. There is some very mild hip degenerative change. There is no fracture or dislocation. The ischial pubic rami are intact. There is no symphysis pubis or SI joint diastasis. Impression: Minor degenerative changes. If there is further clinical concern regarding the patient's lumbago and radicular symptoms, MR imaging could be considered. Imaging: I viewed and interpreted images myself Departure - Departure Disposition: Home, Routine, Self-Care Clinical Impression: Low back pain Qualifiers: Chronicity: acute Back pain laterality: right Sciatica presence: without sciatica Qualified Code(s): M54.5 - Low back pain Condition: Good Instructions: Acute Low Back Pain (ED) Additional Instructions: Please return immediately if you get worsening symptoms or any numbness or weakness in your legs or fever. Symptomatic treatment as we discussed. Your x-rays were interpreted by the emergency physician and were not seen to have any abnormality. If the radiologist reading disagrees we will call you with the discrepancy. Referrals: Fior Valdez MD [Primary Care Provider] - 2-3 days, if not improved
[2018-01-29 14:26] VITALS: BP 148/78; RESP 18; TEMP 98.6
== END 2018-01-29 14:26 | disposition home or self-care (01) ==
DX: M54.5 Low back pain (principal); I10 Essential (primary) hypertension; Z79.01 Long term (current) use of anticoagulants; Z85.51 Personal history of malignant neoplasm of bladder